=== PATIENT | female | born 1970 | race Caucasian/White ===

== ENCOUNTER 2019-06-12 18:38 | Emergency (ER) | payer OTHER ==
[~2019-06-12] VITALS: Ht 175.3 cm; Wt 87.1 kg
[2019-06-12 18:44] VITALS: BP 146/90
== END 2019-06-12 20:54 | disposition home or self-care (01) ==
LOC: ED 20:30
DX: L03.116 Cellulitis of left lower limb (principal); R60.0 Localized edema; I10 Essential (primary) hypertension
CPT/HCPCS: 99284

== ENCOUNTER → 2019-09-11 | Outpatient (CLI) | payer OTHER | END | disposition home or self-care (01) | LOC: CVU 06:57 | PROVIDERS: ATTEND Family Medicine | DX: M79.672 Pain in left foot (principal); I10 Essential (primary) hypertension | CPT/HCPCS: 93922 ==